=== PATIENT | female | born 1955 ===

== ENCOUNTER → 2025-06-20 14:10 | Outpatient (REF) | payer MEDICARE, OTHER, SELFPAY | LOC: HWRAD 14:10 | PROVIDERS: ATTENDING PHYSICIAN Surgery; FAMILY PHYSICIAN Nurse Practitioner Gerontology | DX: K80.50 Calculus of bile duct without cholangitis or cholecystitis without obstruction (principal) | CPT/HCPCS: 76705 ==

== ENCOUNTER 2025-08-15 06:26 | Day surgery (SDC) | payer MEDICARE, OTHER, SELFPAY ==
[2025-08-15] VITALS (17 sets, daily range): BP systolic 81–120; BP diastolic 40–73; BMI 26.3
[2025-08-15] MEDS: IC GREEN 2.5 MG IV (11:29)
[2025-08-15] MEDS: NORMOSOL-R/PLASMALYTE-A 1000 IV (11:32)
[2025-08-15] MEDS: TYLENOL 1000 MG PO (11:32)
[2025-08-15] MEDS: HEPARIN 5000 UNITS SC (11:42)
--- NOTE | 2025-08-15 13:14 | OR.RPT ---
Operative Report
Operative Report
Primary Surgeon: Stevie
Pre-op Diagnosis: Biliary colic
Post-op Diagnosis: Same
Procedure Performed: Robot assisted laparoscopic cholecystectomy with intraoperative near infrared imaging of major extrahepatic bile ducts
Anesthesia Type: GETA
Specimen / Cultures: Gallbladder
Estimated Blood Loss: 1cc
Complications: None immediate
Operative Findings: Floppy gallbladder, filmy adhesions from dome of the right liver lobe to the diaphragm, minor spillage of bile, no stones spilled, irrigated
DOS: 08/15/25
Indications: This 70F developed right upper quadrant/epigastric pain and on workup was found to have cholelithiasis vs polyp. Her pain was very consistent with biliary pain. Laparoscopic cholecystectomy with robotic assist was elected.
Description of procedure: The patient was placed on the operating table in the supine position. General anesthesia was induced. A time-out was completed verifying correct patient, procedure, site, positioning, and special equipment prior to
beginning this procedure. An orogastric tube was placed. The abdomen was prepped and draped in the usual sterile fashion. A stab incision was made in left upper quadrant and the Veress needle was inserted. Proper position was confirmed by aspiration
and saline meniscus test. The abdomen was insufflated with carbon dioxide to a pressure of 12 mmHg. The patient tolerated insufflation well.
An 8mm optical trocar was then inserted in the left upper quadrant. The laparoscope was inserted and the abdomen inspected. No injuries from initial trocar placement or Veress needle insertion were noted. Additional 8mm trocars were then inserted in
the following locations: above the umbilicus, right mid clavicular line at the level of the umbilicus and 6cm lateral to this on the right. The abdomen was inspected and no abnormalities were found. The table was placed in the reverse Trendelenburg
position with the right side up. Filmy adhesions from the right lobe dome of the liver to the diaphragm were noted, but not disturbed. The dome of the gallbladder was grasped with an atraumatic grasper and retracted over the dome of the liver. The
infundibulum was also grasped with an atraumatic grasper and retracted toward the right lower quadrant. This maneuver exposed Calot�s triangle. The cystic duct and cystic artery were dissected out until the only two structures entering the
gallbladder were these two structures. ICG was used to visualize the cystic duct and common duct and anatomy was confirmed. The common duct was protected.
The cystic artery was controlled with bipolar and divided. The cystic duct was doubly clipped and divided. The gallbladder was dissected free from the liver bed. During this step the gallbladder wall broke down in one location and bile spilled out.
No stones spilled out. Hemostasis was assured and the gallbladder and contained stones were removed using an endoscopic retrieval bag placed through the umbilical port. The gallbladder was passed off the table as a specimen. The gallbladder fossa
was irrigated with copious sterile saline and hemostasis was again assured. There was no evidence of bleeding from the gallbladder fossa or cystic artery or leakage of the bile from the cystic duct stump. The umbilical trocar site was closed at the
fascial level laparoscopically with 2-0 PDS. Secondary trocars were removed under direct vision and noted to be hemostatic. The laparoscope was withdrawn and the umbilical trocar removed. The abdomen was allowed to collapse. The skin was closed with
subcuticular sutures of 4-0 monocryl and topical skin adhesive. The orogastric tube was removed.
The patient tolerated the procedure well and was taken to the postanesthesia care unit in stable condition.
[2025-08-15] MEDS: SUBLIMAZE 25 MCG IV (13:53)
[2025-08-15] MEDS: ROXICODONE 5 MG PO (15:53)
== END 2025-08-15 15:40 | disposition home or self-care (01) ==
LOC: SDS 06:26
PROVIDERS: ATTENDING PHYSICIAN Surgery
DX: K80.10 Calculus of gallbladder with chronic cholecystitis without obstruction (principal)
CPT/HCPCS: 47562; 88304